=== PATIENT | female | born 1965 | race Caucasian/White ===

== ENCOUNTER 2022-05-06 19:24 | Inpatient (IN) | payer MEDICAID, OTHER ==
[~2022-05-06] VITALS: Ht 165.1 cm; Wt 104.8 kg
[~2022-05-06 19:24] MED LIST: ASPI-1497 PO; BUSP30TA2 MT; CINN500C5 PO; CLOP75TA15 PO; DOCU-150 PO; ESCI20TA PO; FLUTICASONE PROPIONATE; HYDR25TA PO; INSLIS SUBCUT; LANTUSUD SUBCUT; LINA145C PO; LORA10TA7 PO; MED4 MT; METO25TA6 PO; PANT40TA51 PO; PARO10TA74 PO; PITA2TAB2 PO; PYRI100T10 PO; SPIR25TA PO; ZOLP10TA2 PO; flonase
[2022-05-06 23:39] LABS: CHLORIDE 102 mEq/L (98-107)
[2022-05-06 23:43] LABS: BASOPHILS % 0.5 % (0.0-2.0); EOSINOPHILS % 0.7 % (0.0-5.0); HEMATOCRIT. 49.8 % (36.0-48.0); HEMOGLOBIN. 17.1 g/dL (12.0-16.0); LYMPHOCYTES % 27.4 % (20.0-50.0); MEAN CORPUSCULAR HEMOGLOBIN 30.7 pg (28.0-32.0); MEAN PLATELET VOLUME 8.5 fl (7.4-10.4); MONOCYTES % 5.4 % (2.0-8.0); PLATELET 264 x1000/uL (130-400); RED BLOOD CELL COUNT 5.59 mill/uL (4.2-5.4); RED CELL DISTRIBUTION WIDTH 14.2 % (11.6-14.6)
[2022-05-06] MEDS ORDERED: ASPIRIN 325MG TABLET PO ONE (23:45)
[2022-05-07] VITALS (9 sets, daily range): BP systolic 131–159; BP diastolic 63–91
[2022-05-07] MEDS ORDERED: MIRT-111 PO (00:42)
[2022-05-07] MEDS ORDERED: EMPA25TA PO (08:02)
[2022-05-07] MEDS ORDERED: HYDR10TA34 MT (08:02)
[2022-05-07] MEDS ORDERED: CHOL-36 (08:02)
[2022-05-07] MEDS ORDERED: IPRATROPIUM/ALBUTEROL 0.5-3(2.5)MG/3ML NEB HHN PRN (08:45)
[2022-05-07] MEDS ORDERED: ACETAMINOPHEN 325MG TABLET PO PRN (08:45)
[2022-05-07] MEDS ORDERED: CLONIDINE 0.1MG TABLET PO PRN (08:45)
[2022-05-07] MEDS ORDERED: DIPHENHYDRAMINE 50MG/ML VIAL IV PRN (08:45)
[2022-05-07] MEDS ORDERED: ONDANSETRON HCL 4MG/2ML INJ IV PRN (08:45)
[2022-05-07] MEDS: ASPIRIN 81MG EC TABLET PO SCH (09:06)
[2022-05-07] MEDS ORDERED: DEXTROSE 50% WATER 50ML SYRINGE IV PRN (09:15)
[2022-05-07] MEDS ORDERED: NALOXONE HCL 0.4MG/ML VIAL IV PRN (09:15)
[2022-05-07] MEDS: BLOOD SUGAR DIAGNOSTIC STRIP TEST SCH ×3 (12:03→21:26)
[2022-05-07] MEDS: INSULIN LISPRO 100 UNITS/ML SUBCUT SCH ×3 (12:26→21:26)
[2022-05-07] MEDS: FUROSEMIDE 40MG/4ML VIAL IVP SCH (14:07)
[2022-05-07] MEDS: CLOPIDOGREL 75MG TABLET PO SCH (14:42)
[2022-05-07] MEDS: HYDROXYZINE 10 MG TABLET PO SCH (16:21)
[2022-05-07] MEDS: BUSPIRONE HCL 10MG TABLET PO SCH (21:24)
[2022-05-07] MEDS: MIRTAZAPINE 15MG TABLET PO SCH (21:24)
[2022-05-07] MEDS: METOPROLOL TARTRATE 25MG TABLET PO SCH (21:25)
[2022-05-08] VITALS (10 sets, daily range): BP systolic 110–145; BP diastolic 56–87
[2022-05-08] MEDS: MORPHINE SULFATE 2 MG/ML CPJ (NOT FOR IM USE) IV PRN ×3 (06:31→20:25)
[2022-05-08 07:01] LABS: BASOPHILS % 0.6 % (0.0-2.0); HEMATOCRIT. 50.9 % (36.0-48.0); HEMOGLOBIN. 17.1 g/dL (12.0-16.0); LYMPHOCYTES % 30.9 % (20.0-50.0); MEAN CORPUSCULAR VOLUME 89.2 fL (81.0-99.0); MEAN PLATELET VOLUME 8.4 fl (7.4-10.4); MONOCYTES % 7.4 % (2.0-8.0); NEUTROPHILS % 60.1 % (40.0-76.0); PLATELET 254 x1000/uL (130-400); RED CELL DISTRIBUTION WIDTH 13.6 % (11.6-14.6)
[2022-05-08 08:00] LABS: CHLORIDE 102 mEq/L (98-107)
[2022-05-08] MEDS: BLOOD SUGAR DIAGNOSTIC STRIP TEST SCH ×4 (08:11→20:25)
[2022-05-08 08:38] LABS: T4 FREE 1.17 ng/dL (0.76-1.46)
[2022-05-08] MEDS: FUROSEMIDE 40MG/4ML VIAL IVP SCH (08:49)
[2022-05-08] MEDS: INSULIN LISPRO 100 UNITS/ML SUBCUT SCH ×4 (08:49→20:42)
[2022-05-08] MEDS: BUSPIRONE HCL 10MG TABLET PO SCH ×2 (08:50→20:43)
[2022-05-08] MEDS: ASPIRIN 81MG EC TABLET PO SCH (08:50)
[2022-05-08] MEDS: HYDROXYZINE 10 MG TABLET PO SCH ×2 (08:50→16:23)
[2022-05-08] MEDS: SPIRONOLACTONE 25MG TABLET PO SCH (08:50)
[2022-05-08] MEDS: CLOPIDOGREL 75MG TABLET PO SCH (08:51)
[2022-05-08] MEDS: PANTOPRAZOLE 40MG DR TABLET PO SCH (08:51)
[2022-05-08] MEDS: METOPROLOL TARTRATE 25MG TABLET PO SCH ×2 (08:51→20:41)
[2022-05-08] MEDS: ENOXAPARIN 30MG/0.3ML SYR SUBCUT SCH ×2 (15:12→20:40)
[2022-05-08 18:26] LABS: CREATINE KINASE 56 IU/L (26-192); CREATINE KINASE MB FRACTION < 1.0 ng/mL (0.5-3.6)
[2022-05-08] MEDS: MIRTAZAPINE 15MG TABLET PO SCH (20:41)
[2022-05-09] VITALS (8 sets, daily range): BP systolic 117–153; BP diastolic 69–78
[2022-05-09 02:46] LABS: CREATINE KINASE 48 IU/L (26-192); CREATINE KINASE MB FRACTION < 1.0 ng/mL (0.5-3.6)
[2022-05-09] MEDS: MORPHINE SULFATE 2 MG/ML CPJ (NOT FOR IM USE) IV PRN ×3 (06:56→20:52)
[2022-05-09 07:35] LABS: CREATINE KINASE 42 IU/L (26-192); CREATINE KINASE MB FRACTION < 1.0 ng/mL (0.5-3.6)
[2022-05-09] MEDS: BLOOD SUGAR DIAGNOSTIC STRIP TEST SCH ×4 (08:19→20:53)
[2022-05-09] MEDS: FUROSEMIDE 40MG/4ML VIAL IVP SCH (08:41)
[2022-05-09] MEDS: SPIRONOLACTONE 25MG TABLET PO SCH (08:41)
[2022-05-09] MEDS: PANTOPRAZOLE 40MG DR TABLET PO SCH (08:42)
[2022-05-09] MEDS: ASPIRIN 81MG EC TABLET PO SCH (08:43)
[2022-05-09] MEDS: HYDROXYZINE 10 MG TABLET PO SCH ×2 (08:43→17:00)
[2022-05-09] MEDS: CLOPIDOGREL 75MG TABLET PO SCH (08:43)
[2022-05-09] MEDS: METOPROLOL TARTRATE 25MG TABLET PO SCH ×2 (08:43→20:54)
[2022-05-09] MEDS: BUSPIRONE HCL 10MG TABLET PO SCH ×2 (08:44→20:59)
[2022-05-09] MEDS: ENOXAPARIN 30MG/0.3ML SYR SUBCUT SCH ×2 (08:47→20:53)
[2022-05-09] MEDS: INSULIN LISPRO 100 UNITS/ML SUBCUT SCH ×4 (08:48→20:53)
[2022-05-09] MEDS ORDERED: NITROGLYCERIN 0.4MG TABLET SL SL PRN (10:45)
[2022-05-09] MEDS: MIRTAZAPINE 15MG TABLET PO SCH (20:48)
[2022-05-10] VITALS (7 sets, daily range): BP systolic 108–149; BP diastolic 59–82
[2022-05-10 06:34] LABS: BASOPHILS % 0.3 % (0.0-2.0); EOSINOPHILS % 1.5 % (0.0-5.0); HEMATOCRIT. 49.2 % (36.0-48.0); HEMOGLOBIN. 17.2 g/dL (12.0-16.0); LYMPHOCYTES % 38.7 % (20.0-50.0); MEAN CORPUSCULAR HEMOGLOBIN 30.6 pg (28.0-32.0); MEAN CORPUSCULAR VOLUME 87.7 fL (81.0-99.0); MEAN PLATELET VOLUME 8.7 fl (7.4-10.4); MONOCYTES % 7.8 % (2.0-8.0); NEUTROPHILS % 51.7 % (40.0-76.0); PLATELET 253 x1000/uL (130-400); RED BLOOD CELL COUNT 5.61 mill/uL (4.2-5.4); RED CELL DISTRIBUTION WIDTH 13.6 % (11.6-14.6)
[2022-05-10 07:22] LABS: CHLORIDE 98 mEq/L (98-107)
[2022-05-10] MEDS: BLOOD SUGAR DIAGNOSTIC STRIP TEST SCH ×5 (07:30→21:03)
[2022-05-10] MEDS ORDERED: POTASSIUM CHLORIDE 20MEQ/PACKET PO NR (08:30)
[2022-05-10] MEDS: INSULIN LISPRO 100 UNITS/ML SUBCUT SCH ×4 (08:57→21:13)
[2022-05-10] MEDS: HYDROXYZINE 10 MG TABLET PO SCH ×2 (09:00→18:04)
[2022-05-10] MEDS: FUROSEMIDE 40MG/4ML VIAL IVP SCH (09:00)
[2022-05-10] MEDS: BUSPIRONE HCL 10MG TABLET PO SCH ×2 (09:00→21:02)
[2022-05-10] MEDS: ENOXAPARIN 30MG/0.3ML SYR SUBCUT SCH ×2 (09:00→21:58)
[2022-05-10] MEDS: SPIRONOLACTONE 25MG TABLET PO SCH (09:01)
[2022-05-10] MEDS: ASPIRIN 81MG EC TABLET PO SCH (09:01)
[2022-05-10] MEDS: FAMOTIDINE 20MG TABLET PO SCH ×2 (09:01→21:01)
[2022-05-10] MEDS: CLOPIDOGREL 75MG TABLET PO SCH (09:01)
[2022-05-10] MEDS: METOPROLOL TARTRATE 25MG TABLET PO SCH ×2 (09:02→21:02)
[2022-05-10] MEDS ORDERED: REGADENOSON 0.4 MG/5 ML IV NR (12:30)
[2022-05-10] MEDS: MORPHINE SULFATE 2 MG/ML CPJ (NOT FOR IM USE) IV PRN ×2 (13:03→21:03)
[2022-05-10] MEDS ORDERED: POTASSIUM CHLORIDE 20MEQ TABLET SR PO NR (15:00)
[2022-05-10] MEDS: MIRTAZAPINE 15MG TABLET PO SCH (21:01)
[2022-05-10 21:24] LABS: PHOSPHORUS 2.4 mg/dL (2.5-4.9)
[2022-05-11] VITALS: BP 128/69
[2022-05-11 04:00] VITALS: BP 127/76
[2022-05-11] MEDS: BLOOD SUGAR DIAGNOSTIC STRIP TEST SCH ×4 (06:18→20:49)
[2022-05-11 07:16] LABS: CHLORIDE 103 mEq/L (98-107)
[2022-05-11 08:00] VITALS: BP 119/72
[2022-05-11] MEDS: FUROSEMIDE 40MG/4ML VIAL IVP SCH (08:50)
[2022-05-11] MEDS: ENOXAPARIN 30MG/0.3ML SYR SUBCUT SCH ×2 (08:50→20:49)
[2022-05-11] MEDS: INSULIN LISPRO 100 UNITS/ML SUBCUT SCH ×4 (08:52→21:00)
[2022-05-11] MEDS: SPIRONOLACTONE 25MG TABLET PO SCH (09:00)
[2022-05-11] MEDS: METOPROLOL TARTRATE 25MG TABLET PO SCH ×2 (09:00→20:48)
[2022-05-11] MEDS: HYDROXYZINE 10 MG TABLET PO SCH ×2 (09:00→17:00)
[2022-05-11] MEDS: FAMOTIDINE 20MG TABLET PO SCH ×2 (09:00→20:48)
[2022-05-11] MEDS: BUSPIRONE HCL 10MG TABLET PO SCH ×2 (09:00→20:48)
[2022-05-11] MEDS: CLOPIDOGREL 75MG TABLET PO SCH (09:00)
[2022-05-11] MEDS: ASPIRIN 81MG EC TABLET PO SCH (09:00)
[2022-05-11] MEDS ORDERED: REGADENOSON 0.4 MG/5 ML IV ONE (09:33)
[2022-05-11 12:30] VITALS: BP 134/75
[2022-05-11] MEDS: MORPHINE SULFATE 2 MG/ML CPJ (NOT FOR IM USE) IV PRN ×3 (12:53→21:52)
[2022-05-11 16:00] VITALS: BP 126/75
[2022-05-11 20:00] VITALS: BP 126/73
[2022-05-11] MEDS: MIRTAZAPINE 15MG TABLET PO SCH (20:48)
[2022-05-12 00:05] VITALS: BP 123/75
[2022-05-12 04:00] VITALS: BP 121/69
[2022-05-12] MEDS: BLOOD SUGAR DIAGNOSTIC STRIP TEST SCH ×4 (05:43→20:56)
[2022-05-12 07:24] LABS: BASOPHILS % 0.4 % (0.0-2.0); EOSINOPHILS % 1.6 % (0.0-5.0); HEMATOCRIT. 47.3 % (36.0-48.0); HEMOGLOBIN. 16.3 g/dL (12.0-16.0); LYMPHOCYTES % 35.4 % (20.0-50.0); MEAN CORPUSCULAR HEMOGLOBIN 30.4 pg (28.0-32.0); MEAN CORPUSCULAR VOLUME 88.2 fL (81.0-99.0); MONOCYTES % 7.6 % (2.0-8.0); PLATELET 207 x1000/uL (130-400); RED BLOOD CELL COUNT 5.37 mill/uL (4.2-5.4); RED CELL DISTRIBUTION WIDTH 13.5 % (11.6-14.6)
[2022-05-12 07:26] LABS: CHLORIDE 103 mEq/L (98-107)
[2022-05-12 08:00] VITALS: BP 141/79
[2022-05-12] MEDS ORDERED: NICARDIPINE 100MCG/ML 10ML VIAL (CATH LAB) IV ONE (08:23)
[2022-05-12] MEDS ORDERED: NITROGLYCERIN 50MCG/ML 10ML VIAL (CATH LAB) IV ONE (08:23)
[2022-05-12] MEDS: CLOPIDOGREL 75MG TABLET PO SCH (09:00)
[2022-05-12] MEDS: METOPROLOL TARTRATE 25MG TABLET PO SCH (09:00)
[2022-05-12] MEDS: BUSPIRONE HCL 10MG TABLET PO SCH ×2 (09:00→20:55)
[2022-05-12] MEDS: ASPIRIN 81MG EC TABLET PO SCH (09:00)
[2022-05-12] MEDS: FAMOTIDINE 20MG TABLET PO SCH ×2 (09:00→20:55)
[2022-05-12] MEDS: HYDROXYZINE 10 MG TABLET PO SCH ×2 (09:00→17:00)
[2022-05-12] MEDS: FUROSEMIDE 40MG/4ML VIAL IVP SCH (09:21)
[2022-05-12] MEDS: INSULIN LISPRO 100 UNITS/ML SUBCUT SCH ×4 (09:21→20:56)
[2022-05-12] MEDS: ENOXAPARIN 30MG/0.3ML SYR SUBCUT SCH ×2 (09:22→20:55)
[2022-05-12] MEDS: SPIRONOLACTONE 25MG TABLET PO SCH (10:40)
[2022-05-12] MEDS ORDERED: HEPARIN 1000 UNITS/ML 10ML ONE (11:58)
[2022-05-12] MEDS ORDERED: IODIXANOL 320MG/ML 100 ML BOTTLE IV ONE (11:58)
[2022-05-12] MEDS ORDERED: FENTANYL CITRATE/PF 50MCG/ML 2ML VIAL ONE (11:58)
[2022-05-12] MEDS ORDERED: LIDOCAINE HCL 1% 10 MG/ML 10ML VIAL ONE (11:58)
[2022-05-12] MEDS ORDERED: MIDAZOLAM HCL 2 MG/2 ML VIAL ONE (11:58)
[2022-05-12 12:00] VITALS: BP 128/77
[2022-05-12] MEDS ORDERED: ACETAMINOPHEN 325MG TABLET PO PRN (12:45)
[2022-05-12] MEDS ORDERED: ATROPINE SULFATE 1MG/10ML SYR IV PRN (12:45)
[2022-05-12] MEDS ORDERED: KCL 20MEQ/100ML PREMIX 100 ML IV NR (13:00)
[2022-05-12] MEDS ORDERED: SACU1TAB MT (13:57)
[2022-05-12] MEDS ORDERED: EMPA10TA MT (13:57)
[2022-05-12] MEDS ORDERED: COR3 PO (13:57)
[2022-05-12 16:00] VITALS: BP 120/74
[2022-05-12] MEDS ORDERED: NALOXONE HCL 0.4MG/ML VIAL IV PRN (16:00)
[2022-05-12] MEDS: HYDROCODONE/ACETAMINOPHEN 5/325MG TABLET PO PRN ×2 (16:12→21:26)
[2022-05-12] MEDS ORDERED: POTASSIUM CHLORIDE 20MEQ TABLET SR PO NR (17:30)
[2022-05-12 20:00] VITALS: BP 118/68
[2022-05-12] MEDS: MIRTAZAPINE 15MG TABLET PO SCH (20:55)
[2022-05-12] MEDS: CARVEDILOL 3.125 MG TABLET PO SCH (20:55)
[2022-05-13] VITALS: BP 140/69
[2022-05-13 04:00] VITALS: BP 129/85
[2022-05-13] MEDS: BLOOD SUGAR DIAGNOSTIC STRIP TEST SCH (06:24)
[2022-05-13] MEDS: INSULIN LISPRO 100 UNITS/ML SUBCUT SCH (07:51)
[2022-05-13 08:00] VITALS: BP 118/65
[2022-05-13] MEDS: CLOPIDOGREL 75MG TABLET PO SCH (08:30)
[2022-05-13] MEDS: CARVEDILOL 3.125 MG TABLET PO SCH (08:30)
[2022-05-13] MEDS: ASPIRIN 81MG EC TABLET PO SCH (08:31)
[2022-05-13] MEDS: FAMOTIDINE 20MG TABLET PO SCH (08:31)
[2022-05-13] MEDS: SPIRONOLACTONE 25MG TABLET PO SCH (08:31)
[2022-05-13] MEDS: FUROSEMIDE 40MG/4ML VIAL IVP SCH (08:31)
[2022-05-13] MEDS: ENOXAPARIN 30MG/0.3ML SYR SUBCUT SCH (08:31)
[2022-05-13] MEDS ORDERED: LISINOPRIL 5MG TABLET PO SCH (09:00)
[2022-05-13 10:08] VITALS: BP 118/65
[2022-05-14] MEDS ORDERED: MECL-159 MT (04:39)
[2022-05-14] MEDS ORDERED: ACET-2708 MT (04:39)
[2022-05-14] MEDS ORDERED: LIDO700A15 TP (04:39)
== END 2022-05-13 11:10 | disposition home or self-care (01) | DRG 192 ==
LOC: ER 19:24 → ENRESERV 05-07 02:43 → 5EST 05-07 04:51 → 7WST 05-10 12:31
PROVIDERS: ADMIT Internal Medicine; ATTEND Internal Medicine
PROC: B2111ZZ Fluoroscopy of Multiple Coronary Arteries using Low Osmolar Contrast (ICD-10-PCS; principal; 2022-05-12)
PROC: B2151ZZ Fluoroscopy of Left Heart using Low Osmolar Contrast (ICD-10-PCS; 2022-05-12)
PROC: 4A023N7 Measurement of Cardiac Sampling and Pressure, Left Heart, Percutaneous Approach (ICD-10-PCS; 2022-05-12)
PROC: B21F1ZZ Fluoroscopy of Other Bypass Graft using Low Osmolar Contrast (ICD-10-PCS; 2022-05-12)
DX: M94.0 Chondrocostal junction syndrome [Tietze] (principal); J96.00 Acute respiratory failure, unspecified whether with hypoxia or hypercapnia; I50.43 Acute on chronic combined systolic (congestive) and diastolic (congestive) heart failure; E11.9 Type 2 diabetes mellitus without complications; D75.1 Secondary polycythemia; E78.5 Hyperlipidemia, unspecified; E87.6 Hypokalemia; I11.0 Hypertensive heart disease with heart failure; I25.10 Atherosclerotic heart disease of native coronary artery without angina pectoris; J44.9 Chronic obstructive pulmonary disease, unspecified; F32.A Depression, unspecified; F41.9 Anxiety disorder, unspecified; R79.89 Other specified abnormal findings of blood chemistry; Z20.822 Contact with and (suspected) exposure to COVID-19; R74.01 Elevation of levels of liver transaminase levels; I25.2 Old myocardial infarction; Z95.1 Presence of aortocoronary bypass graft; Z79.899 Other long term (current) drug therapy; Z79.82 Long term (current) use of aspirin; Z28.310 Unvaccinated for COVID-19; Z59.00 Homelessness unspecified
CPT/HCPCS: 36415; 71045; 78452; 80048; 80053; 80061; 80076; 82550; 82553; 82962; 83036; 83735; 83880; 84100; 84132; 84439; 84443; 84484; 85025; 85379; 87426; 93005; 93017; 93306; 93459; 93970; 99291; A9500; C1760; C1769; C1887; C1893; J1644; J1650; J1815; J1940; J2250; J2270; J2785; J3010; J3480; J3490; J7040; Q9967

== ENCOUNTER 2022-05-13 20:15 | Emergency (ER) | payer OTHER ==
[~2022-05-13] VITALS: Ht 165.1 cm; Wt 103.0 kg
[~2022-05-13 20:15] MED LIST changes: -ASPI-1497 PO; +CHOL-36; -CINN500C5 PO; +COR3 PO; -DOCU-150 PO; +EMPA10TA MT; -FLUTICASONE PROPIONATE; +HYDR10TA34 MT; -HYDR25TA PO; -INSLIS SUBCUT; -LANTUSUD SUBCUT; -LINA145C PO; -LORA10TA7 PO; -MED4 MT; -METO25TA6 PO; +MIRT-111 PO; -PARO10TA74 PO; -PITA2TAB2 PO; -PYRI100T10 PO; +SACU1TAB MT; -SPIR25TA PO; -ZOLP10TA2 PO; -flonase
[2022-05-13 20:44] VITALS: BP 108/52
[2022-05-14] MEDS ORDERED: LORAZEPAM 1MG TABLET PO ONE (00:45)
[2022-05-14] MEDS ORDERED: ACETAMINOPHEN 325MG TABLET PO NR (01:15)
[2022-05-14] MEDS ORDERED: MECLIZINE 25MG TABLET PO NR (01:15)
[2022-05-14 01:23] LABS: BASOPHILS % 0.4 % (0.0-2.0); EOSINOPHILS % 0.9 % (0.0-5.0); HEMATOCRIT. 48.1 % (36.0-48.0); HEMOGLOBIN. 15.9 g/dL (12.0-16.0); LYMPHOCYTES % 33.1 % (20.0-50.0); MEAN CORPUSCULAR HEMOGLOBIN 29.9 pg (28.0-32.0); MEAN CORPUSCULAR VOLUME 90.3 fL (81.0-99.0); MEAN PLATELET VOLUME 8.5 fl (7.4-10.4); NEUTROPHILS % 56.6 % (40.0-76.0); PLATELET 244 x1000/uL (130-400); RED BLOOD CELL COUNT 5.32 mill/uL (4.2-5.4); RED CELL DISTRIBUTION WIDTH 13.6 % (11.6-14.6)
[2022-05-14 01:40] LABS: CHLORIDE 99 mEq/L (98-107)
[2022-05-14 01:55] LABS: ETHANOL BLOOD < 10 mg/dL
[2022-05-14 03:32] LABS: *AMPHETAMINES SCREEN URINE NEGATIVE (NEGATIVE); *BARBITURATES SCREEN URINE NEGATIVE (NEGATIVE); *BENZODIAZEPINES SCREEN URINE PRESUMTIVE POSITIVE (NEGATIVE); *COCAINE SCREEN URINE NEGATIVE (NEGATIVE); CANNABINOID URINE SCREEN NEGATIVE (NEGATIVE); METHADONE URINE SCREEN NEGATIVE (NEGATIVE); OPIATES URINE SCREEN PRESUMTIVE POSITIVE (NEGATIVE); PHENCYCLIDINE URINE SCREEN NEGATIVE (NEGATIVE)
[2022-05-14] MEDS ORDERED: LIDOCAINE 5% PATCH TOP SCH (03:45)
[2022-05-14] MEDS ORDERED: MECL-159 MT (04:39)
[2022-05-14] MEDS ORDERED: LIDO700A15 TP (04:39)
[2022-05-14] MEDS ORDERED: ACET-2708 MT (04:39)
== END 2022-05-14 05:50 | disposition home or self-care (01) ==
LOC: ER 20:15
DX: R42 Dizziness and giddiness (principal); R51.9 Headache, unspecified; M54.9 Dorsalgia, unspecified; N28.9 Disorder of kidney and ureter, unspecified; F41.9 Anxiety disorder, unspecified; J45.909 Unspecified asthma, uncomplicated; F32.9 Major depressive disorder, single episode, unspecified; E11.9 Type 2 diabetes mellitus without complications; Z79.82 Long term (current) use of aspirin
CPT/HCPCS: 36415; 70450; 71045; 80053; 80305; 80320; 83690; 83880; 84484; 85025; 93005; 99285; J8597; G0480